=== PATIENT | male | born 2000 | race African-American/Black ===

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

== ENCOUNTER 2021-09-16 23:25 | Emergency (ER) | payer SELFPAY ==
[~2021-09-16] VITALS: Ht 177.8 cm; Wt 69.4 kg
[2021-09-17] MEDS ORDERED: PREDNISONE20 M1 PO (00:40)
== END 2021-09-17 00:47 | disposition home or self-care (01) ==
LOC: ED 23:25
DX: J45.901 Unspecified asthma with (acute) exacerbation (principal)

== ENCOUNTER 2023-08-24 17:05 | Emergency (ER) | payer OTHER ==
[~2023-08-24] VITALS: Ht 182.8 cm; Wt 74.8 kg
[~2023-08-24 17:05] MED LIST changes: +PREDNISONE20 M1 PO
[2023-08-24] MEDS ORDERED: Acetaminophen/Hydrocodone 5 MG/325 MG TABLET PO ONE (17:20)
[2023-08-24] MEDS ORDERED: Bacitracin Zinc 14 GM TUBE T ONE (17:20)
[2023-08-24] MEDS ORDERED: Tdap Vaccine 0.5 ML SYR (Adult Vaccine) IM ONE (17:20)
[2023-08-24] MEDS ORDERED: CEPHALEXIN500 M1 PO ×2 (20:36→20:43)
[2023-08-24] MEDS ORDERED: CEPHALEXIN 500 MG CAP PO ONE (20:40)
== END 2023-08-24 20:55 | disposition home or self-care (01) ==
LOC: ED 17:05
DX: S00.81XA Abrasion of other part of head, initial encounter (principal); S40.812A Abrasion of left upper arm, initial encounter; S40.811A Abrasion of right upper arm, initial encounter; S09.93XA Unspecified injury of face, initial encounter; Z98.890 Other specified postprocedural states; V19.9XXA Pedal cyclist (driver) (passenger) injured in unspecified traffic accident, initial encounter; Y93.55 Activity, bike riding; Y92.410 Unspecified street and highway as the place of occurrence of the external cause; Y99.8 Other external cause status